=== PATIENT | male | born 1945 | race Caucasian/White ===

== ENCOUNTER 2019-01-23 10:42 | Emergency (ER) | payer MEDICARE ==
[2019-01-23] MEDS ORDERED: Adacel (T-DAP) 0.5 ML SYRINGE ONE (11:38)
[2019-01-23] MEDS ORDERED: Bacitracin 1 PK ONE (11:48)
--- NOTE | 2019-01-23 12:06 | RAD ---
EXAM: 3 views of the left small finger HISTORY: Finger pain after laceration COMPARISON: None FINDINGS: There is no evidence of acute fracture or dislocation. No soft tissue swelling is seen. No degenerative changes are present. No radiopaque foreign body is seen. IMPRESSION: No evidence of acute osseous abnormality.
--- NOTE | 2019-01-23 16:21 | RAD ---
FIFTH FINGER LEFT HAND: Three views. 01/23/19 HISTORY: Injury. Mild degenerative change at the IP joints. No fracture or dislocation. No acute osseous abnormality. IMPRESSION: No acute findings. POS: OFF
== END 2019-01-23 13:30 | disposition home or self-care (01) ==
LOC: ERS 10:42
DX: S61.217A Laceration without foreign body of left little finger without damage to nail, initial encounter (principal); T81.33XA Disruption of traumatic injury wound repair, initial encounter; W45.8XXA Other foreign body or object entering through skin, initial encounter; Z23 Encounter for immunization
CPT/HCPCS: 90471; 90715